=== PATIENT | male | born 1990 | race Caucasian/White ===

== ENCOUNTER → 2022-09-30 | Outpatient (CLI) | payer OTHER | LOC: M PLAIMG 13:23 | PROVIDERS: ATTEND Orthopaedic Surgery Adult Reconstructive Orthopaedic Surgery | DX: M22.42 Chondromalacia patellae, left knee (principal) ==

== ENCOUNTER → 2023-08-11 | Outpatient (CLI) | payer OTHER | LOC: M SLEEP 20:00 | PROVIDERS: ATTEND Nurse Practitioner Family | DX: G47.33 Obstructive sleep apnea (adult) (pediatric) (principal) ==